=== PATIENT | female | born 1970 | race Caucasian/White ===

== ENCOUNTER 2017-03-22 12:29 | Observation (INO) | payer BC, OTHER ==
[2017-03-22] MEDS ORDERED: BUPIVACAINE/EPI 0.25% 30 ML SDV ONE (12:52)
[2017-03-22] MEDS ORDERED: THROMBIN (BOVINE) 5,000 UNIT VIAL TP ONE (12:52)
[2017-03-22] MEDS ORDERED: BUPIVACAINE 0.25% 30 ML SDV ONE (12:52)
[2017-03-22] MEDS ORDERED: BACITRACIN 50,000 UNITS/10 ML SYR IRR ONE (12:53)
[2017-03-22] MEDS ORDERED: SURGIFLO MATRIX KIT WITH THROMBIN TP ONE (12:54)
[2017-03-22] MEDS ORDERED: LIDOCAINE 1% 2 ML INJ ONE (13:08)
[2017-03-22] MEDS ORDERED: ceFAZolin 2 GM/DEXTROSE 100 ML IV ONE (13:30)
[2017-03-22] MEDS ORDERED: DEXAMETHASONE 10 MG/ML VIAL IV ONE (13:30)
[2017-03-22] MEDS ORDERED: LR 1,000 ML IV ONE (13:45)
[2017-03-22] MEDS ORDERED: LIDOCAINE 1% 5 ML SDV ID PRN (13:45)
[2017-03-22 14:06] LABS: % IMMATURE GRANULYOCYTES 0.9 % (0.0-1.1); ABSOLUTE IMMATURE GRANULOCYTES 0.14 10^3/uL (0.00-0.10); ADD DIFF? NO; ADD MORPH? NO; ADD SCAN? NO; ATYPICAL LYMPHOCYTE FLAG 0 (0-99); FRAGMENT RBC FLAG 0 (0-99); HEMATOCRIT 46.2 % (38.0-47.0); HEMOGLOBIN 15.6 g/dL (12.6-16.3); LEFT SHIFT FLG 10 (0-99); LIPEMIA HEMOLYSIS FLAG 90 (0-99); MEAN CELL HEMOGLOBIN 29.4 pg (27.9-34.1); MEAN CELL HEMOGLOBIN CONCENTR. 33.8 g/dL (32.4-36.7); MEAN PLATELET VOLUME 9.2 fL (8.7-11.7); PLATELET CLUMPS FLAG 20 (0-99); PLATELET COUNT 270 10^3/uL (150-400); RED BLOOD CELL COUNT 5.31 10^6/uL (4.18-5.33); RED CELL DISTRIBUTION WIDTH 12.5 % (11.5-15.2)
[2017-03-22 14:14] LABS: PROTIME(PATIENT) 13.1 SEC (12.0-15.0)
[2017-03-22 14:15] LABS: APTT 21.8 SEC (23.0-38.0)
[2017-03-22 14:18] LABS: ANION GAP 13 mEq/L (8-16); CALCIUM 9.7 mg/dL (8.5-10.4); CARBON DIOXIDE 26 mEq/l (22-31); CHLORIDE 100 mEq/L (97-110); CREATININE 0.7 mg/dL (0.6-1.0); GLOMERULAR FILTRATION RATE > 60; GLUCOSE 93 mg/dL (70-100); POTASSIUM 4.3 mEq/L (3.5-5.2); SODIUM 139 mEq/L (134-144)
[2017-03-22] MEDS ORDERED: fentaNYL 250 MCG/5 ML INJ ONE (18:54)
[2017-03-22] MEDS ORDERED: PROPOFOL 200 MG/20 ML VIAL ONE (18:55)
[2017-03-22] MEDS ORDERED: MIDAZOLAM 2 MG/2 ML VIAL ONE (18:55)
[2017-03-22] MEDS ORDERED: LIDOCAINE 2% 5 ML SDV ONE (18:57)
[2017-03-22] MEDS ORDERED: SUCCINYLCHOLINE CHLORIDE*ANESTHESIA ONLY*200 MG/10 ML SYR IVP ONE (18:57)
[2017-03-22] MEDS ORDERED: ONDANSETRON 4 MG/2 ML VIAL ONE (18:57)
[2017-03-22] MEDS ORDERED: ACETAMINOPHEN 325 MG TAB PO PRN (18:58)
[2017-03-22] MEDS ORDERED: LACTULOSE 20 GM/30 ML UDCUP PO PRN (18:58)
[2017-03-22] MEDS ORDERED: HYDROmorphONE/DILAUDID 1 MG/ML SYR IVP PRN (18:58)
[2017-03-22] MEDS ORDERED: POLYETHYLENE GLYCOL 3350 17 GM PKT PO PRN (18:58)
[2017-03-22] MEDS ORDERED: BISACODYL 10 MG SUPP PR PRN (18:58)
[2017-03-22] MEDS ORDERED: diphenhydrAMINE 25 MG CAP PO PRN (18:58)
[2017-03-22] MEDS ORDERED: MAGNESIUM HYDROXIDE 30 ML UDCUP PO PRN (18:58)
[2017-03-22] MEDS ORDERED: ONDANSETRON 4 MG/2 ML VIAL IVP PRN (18:58)
[2017-03-22] MEDS ORDERED: METHOCARBAMOL 750 MG TAB PO PRN (18:58)
[2017-03-22] MEDS ORDERED: NS W/ 20 KCl/L 1,000 ML IV SCH (19:00)
[2017-03-22] MEDS ORDERED: DEPO METHYLPREDNISOLONE 40 MG/ML SDV ONE (20:35)
[2017-03-22] MEDS ORDERED: HYDROmorphONE/DILAUDID 2 MG/ML INJ ONE (21:10)
[2017-03-22] MEDS ORDERED: fentaNYL 100 MCG/2 ML INJ ONE (21:17)
--- NOTE | 2017-03-22 21:31 | GOP ---
[f rep st] OPERATIVE REPORT DATE OF OPERATION: 03/22/2017 SURGEON: Katherine Huizar DO NEUROSURGEON: Katherine Huizar DO. PRINCIPAL IOS DEVELOPER: GEMMA Harper. PREOPERATIVE DIAGNOSIS: 1. Herniated nucleus pulposus. 2. Critical stenosis. 3. Radiculopathy. 4. Foot drop. POSTOPERATIVE DIAGNOSIS: 1. Herniated nucleus pulposus. 2. Critical stenosis. 3. Radiculopathy. 4. Foot drop. PROCEDURE PERFORMED: 1. L4-5 bilateral laminectomy. 2. Removal of large L4-5 herniated nucleus pulposus. 3. Microscope. FINDINGS: SPECIMENS: None. ESTIMATED BLOOD LOSS: 100 mL. INDICATIONS: This is a 46-year-old female with an incredibly large L4-5 extruded disc, extruded inf eriorly with dorsiflexion, plantar flexion weakness but no true cauda equinus. She had failed conse rvative management. Would be unable to tolerate as the size of this disc is creating critical steno sis. She elected to move forward with microdiskectomy and bilateral laminectomy. It was determined that a bilateral laminectomy would be required secondary to the size of the disc. DESCRIPTION OF PROCEDURE: She was identified, consented, sites were marked. Brought to the operati ng room, anesthetized under general endotracheal anesthesia, rolled onto the OR bed with a Obaz fr arianna. All pressure points were appropriately padded. The skin was cleansed with ChloraPrep. X-ray was taken with an 18-gauge spinal needle to norah incision. She was prepped and draped in usual ster ile fashion. Incision was anesthetized with 0.5% Marcaine with epinephrine. Incision was made with a 10 blade. Hemostasis obtained with Bovie bipolar, dissected down onto the laminae of L4 and L5 m easuring and placing a [place] retractor, placed a [place], took an x-ray verified when in the olya ropriate position. Used [place] to remove the spinous process of L4 and the superior portion of the spinous process of L5. Using a high-speed drill, created a complete laminectomy at L4 and L5 from the superior to the inferior portion of the foramen bilaterally, extending this with 3 and 4 Kerriso n. Once we had completely laminectomy, her left side was more symptomatic so we retracted the theca l sac medially and came upon large epidural vessels which were coagulated, and then large disc fragm ent. Placing the nerve root retractor under the microscope, we were able to use a micro pituitary t o remove 3 exceedingly large fragments of disc. We then completely explored the foramen, performed a foraminotomy and explored the entire posterior epidural space as well as from the contralateral si de and all free disc fragments had been removed. The nerve roots were well decompressed. The neuro monitoring actually improved after decompression and diskectomy. We then copiously irrigated with over a L of bacitracin infused saline. Meticulous hemostasis was obtained with bipolar cautery. Fl oSeal and bone wax waxing the bone edges. Once the bone edges were smoothed and bone waxed and ever ything was meticulously hemostatic and we had copiously irrigated, I placed 40 mg of Depo-Medrol dir ectly over the nerve, removed the microscope, removed retractors, closed the fascia with 0 Vicryl po p offs, subcutaneous layer with 2-0 Vicryl pop offs, subcutaneous layer with 3-0 Vicryl pop offs. T he skin was closed with a 4-0 running Monocryl and Steri-Strips. It was dressed with Xeroform gauze , and Tegaderm. Again neuro monitoring to lower extremities improved at the end of the surgery and there were no complications. FLUID: 600 mL crystalloid. URINE OUTPUT: None. DRAINS: None. COMPLICATIONS: None. /[id number]/MODL
--- NOTE | 2017-03-22 21:31 | POSTOPPROG ---
Post Op Note Date of Operation: 03/22/17 Surgeon: Katherine Huizar Bundle Sorter: Jane Mckenzie PA-C Anesthesia: GET(General Endotracheal) Pre-op Diagnosis: Lumbar disc herniation Post-op Diagnosis: Lumbar disc herniation Procedure: L4/5 laminectomy with discectomy Inf/Abcess present in the surg proc area at time of surgery?: No Depth: Deep Incisional (Fascial) EBL: 50-100 Plan Plan: 46 yo female s/p L4/5 laminectomy and discectomy - neuro checks - pain control - advance diet as tolerated - dispo: plan for home tomorrow morning Exam Awake. Alert. Following commands Left foot weakness DF
[2017-03-22] MEDS: SENNOSIDES/DOCUSATE SODIUM TAB PO SCH (22:05)
[2017-03-22] MEDS: oxyCODONE IR 5 MG TAB PO PRN (22:27)
[2017-03-23 01:56] VITALS: O2SAT 96
[2017-03-23] MEDS: oxyCODONE IR 5 MG TAB PO PRN ×2 (02:27→07:53)
[2017-03-23] MEDS: ONDANSETRON DISINTEGRATING 4 MG TAB PO PRN ×3 (02:33→10:40)
--- NOTE | 2017-03-23 07:45 | NEUSURGPN ---
Date of Surgery: 03/22/17 Post Op Day: 1 Assessment/Plan: 46 yo female s/p L4/5 laminectomy with discectomy - neuro improved - pain controlled on orals - tolerating a diet - plan for discharge today after seen by PT Subjective: Patient resting in bed. Weakness is improved, numbness continues. Objective: Awake. Alert. PERRL. EOMI Facial expression symmetrical Muscle strength full except for LLE with DF/PF at 4/5 and knee flex 5-/5 - Physician Patient Seen by : [facility] Physical Exam - Vitals, I&O, Labs I and O 03/22/17 03/23/17 03/24/17 05:59 05:59 05:59 Intake Total 750 Output Total 100 Balance 650 Weight 70.307 kg 70.3 kg Intake: IV Intake (ml) 750 Output: Estimated Blood Loss (ml) 100 Other: Intake Quantity Yes Sufficient Number of Voids Toilet 1 Vital Signs Temp Pulse Resp BP Pulse Ox 36.6 C 83 16 92/56 L 96 03/23/17 04:00 03/23/17 04:00 03/23/17 04:00 03/23/17 04:00 03/23/17 04:00 Laboratory Results 03/22/17 13:50 03/22/17 13:50 ICD10 Worksheet Patient Problems: Problems Problem Status Onset Lumbar disc herniation with radiculopathy Acute - ICD10 Problem Qualifiers (1) Lumbar disc herniation with radiculopathy
[2017-03-23 07:50] VITALS: BP 103/57; PULSE 74; RESP 14; TEMP 98.5
[2017-03-23] MEDS: SENNOSIDES/DOCUSATE SODIUM TAB PO SCH (07:52)
== END 2017-03-23 14:13 | disposition home or self-care (01) ==
LOC: FSGY 12:29 → F3N 18:58
PROVIDERS: ADMIT Neurological Surgery; ATTEND Neurological Surgery
DX: M51.06 Intervertebral disc disorders with myelopathy, lumbar region (principal); M51.26 Other intervertebral disc displacement, lumbar region; M51.36 Other intervertebral disc degeneration, lumbar region; M21.372 Foot drop, left foot
CPT/HCPCS: 63042; 76001; 97161; 97165; G0378; J0330; J0690; J1030; J1170; J2250; J2405; J2704; J3010

== ENCOUNTER → 2017-07-06 | Outpatient (CLI) | payer OTHER | LOC: CIMAGING 09:35 | PROVIDERS: ATTEND Family Medicine | DX: Z12.31 Encounter for screening mammogram for malignant neoplasm of breast (principal) | CPT/HCPCS: G0202 ==